=== PATIENT | male | born 1985 | race Caucasian/White ===

== ENCOUNTER 2019-10-08 21:47 | Emergency (ER) | payer SELFPAY ==
[~2019-10-08] VITALS: Ht 167.6 cm; Wt 102.1 kg
[2019-10-08 21:50] VITALS: BP 146/78
--- NOTE | 2019-10-08 21:53 | NUR ---
BOTH EYE 20/20, RT EYE 20/25, LEFT EYE 20/20 TO LOBBY A/W BED AMBULATORY
--- NOTE | 2019-10-08 22:38 | NUR ---
PT AMBULATED TO BED #11
--- NOTE | 2019-10-08 22:58 | NUR ---
C/O RT EYE PAIN X TONGIHT. OT STATES WHEN HE VOMITTED HE STARTED BLEEDING FORM EYE. RT RYR SHOWS REDNESS, YELLOW DISCHARGE DRIANAGE. PT STATES HIS EYE IS ITCHY. VSS. RT EYE VISUAL ACUITY IS 20/25. PT DENIES ANY BLURRY VISION. A &O X4. STEADY GAIT.DENIES ANY TRUAMA OR INJURY TO EYE. NKA. NO PMH.
[2019-10-08 23:05] VITALS: BP 146/78
--- NOTE | 2019-10-08 23:05 | NUR ---
Patient discharged with v/s stable. Written and verbal after care instructions given and explained. Patient alert, oriented and verbalized understanding of instructions. Ambulatory with steady gait. All questions addressed prior to discharge. ID band removed. Patient advised to follow up with PMD. Rx of ERYTHROMYCIN given. Patient educated on indication of medication including possible reaction and side effects. Opportunity to ask questions provided and answered.
== END 2019-10-08 23:05 | disposition home or self-care (01) ==
LOC: MED 21:47
DX: H10.9 Unspecified conjunctivitis (principal)
CPT/HCPCS: 99283